=== PATIENT | female | born 1990 | race Caucasian/White ===

== ENCOUNTER 2017-08-12 20:08 | Emergency (ER) | payer OTHER ==
[2017-08-12 20:52] VITALS: BP 118/72
--- NOTE | 2017-08-12 20:58 | UC ---
General HPI - HPI Summary HPI Summary: VET STUDENT. HAS BEEN TREATED FOR MONTH AND A HALF FOR VASCULITIS BY POWER WOOD SAWYER. TODAY DEVELOPED HEADACHE, SINUS PRESSURE. FEVER 101.3F AT 3PM. PETICHEAL RASH TRIPLED IN AREA COVERING ARMS AND LEGS. DEVELOPED ABDOMINAL PAIN , CRAMPING. IS ON MOBIC. CANCELLED COLCHECINE, WAS PUT ON ZPACK AND PREDNISONE TODAY. . - History of Current Complaint Chief Complaint: UCAbdominalPain Stated Complaint: FEVER,ABD & HEAD PAIN Time Seen by Provider: 08/12/17 20:18 Hx Obtained From: Patient Hx Last Menstrual Period: 2 weeks ago Onset/Duration: Sudden Onset, Lasting Hours Onset Severity: Moderate Current Severity: Mild Pain Intensity: 2 Associated Signs & Symptoms: Positive: Abdominal Pain, Fever, Headache, Other - PETECHIA. Negative: Cough, Dizziness, Diarrhea, Dysuria, Syncope, SOB, Trauma, Vomiting - Allergy/Home Medications Allergies/Adverse Reactions: Allergies Allergy/AdvReac Type Severity Reaction Status Date / Time No Known Allergies Allergy Verified 08/12/17 20:28 Home Medications: Home Medications Colchicine* [Colcrys*] 1 tab PO DAILY 08/12/17 [History Confirmed 08/12/17] Meloxicam [Mobic] 1 tab PO DAILY 08/12/17 [History Confirmed 08/12/17] Prednisone 08/12/17 [History] Z Gordon 08/12/17 [History] PMH/Surg Hx/FS Hx/Imm Hx Previously Healthy: Yes - Surgical History Surgical History: None - Family History Known Family History: Negative: Blood Disorder - Social History Occupation: Student Alcohol Use: Weekly Alcohol Amount: 1 drink per week Substance Use Type: None Smoking Status (MU): Never Smoked Tobacco Review of Systems Constitutional: Fever, Fatigue Skin: Rash Eyes: Negative ENT: Sinus Congestion, Sinus Pain/Tenderness Respiratory: Negative Cardiovascular: Negative Gastrointestinal: Abdominal Pain Genitourinary: Negative Motor: Negative Neurovascular: Negative Musculoskeletal: Negative Neurological: Headache Psychological: Negative Is Patient Immunocompromised?: Yes All Other Systems Reviewed And Are Negative: Yes Physical Exam Triage Information Reviewed: Yes Appearance: No Pain Distress, Well-Nourished, Ill-Appearing Vital Signs: Initial Vital Signs Temp 100.4 F 08/12/17 20:17 Pulse 118 08/12/17 20:17 Resp 18 08/12/17 20:17 BP 118/72 08/12/17 20:17 Pulse Ox 100 08/12/17 20:17 Vital Signs Reviewed: Yes Eye Exam: Normal Eyes: Positive: Conjunctiva Clear ENT Exam: Normal ENT: Positive: Normal ENT inspection, Hearing grossly normal, TMs normal Dental Exam: Normal Neck exam: Normal Neck: Positive: Supple, Nontender, No Lymphadenopathy Respiratory Exam: Normal Respiratory: Positive: Chest non-tender, Lungs clear, Normal breath sounds, No respiratory distress Cardiovascular Exam: Normal Cardiovascular: Positive: RRR, No Murmur, Pulses Normal Abdominal Exam: Normal Abdomen Description: Positive: Nontender, No Organomegaly Musculoskeletal Exam: Normal Neurological Exam: Normal Psychological Exam: Normal Skin: Positive: rashes Course/Dx - Course Course Of Treatment: PATIENT ADVISED TO SEEK HIGHER LEVEL OF CARE AT EMERGENCY DEPARTMENT. PATIENT REFUSED THE OFFER OF AMBULANCE TRANSPORT AND ELECTED TO GO TO THE EMERGENCY DEPARTMENT BY PRIVATE CAR. - Differential Dx - Multi-Symptom Differential Diagnoses: Metabolic Abnormality, Sepsis, Other - HSP, TTP, YOMAIRA MTN SPOTTED FEVER, ZOONOTIC DISORDER Provider Diagnoses: PETICHEA; HEADACHE; FEVER; ABDOMINAL PAIN; HISTORY OF VASCULITIS - Physician Notifications Discussed Patient Care With: Jannette Gee Time Discussed With Above Provider: 20:40 Instructed by Provider To: MD Will See In ED Discharge - Discharge Plan Condition: Stable Disposition: OTHER Discharge Disposition Comment: ADVISED TO GO TO ED, REFUSED AMBULANCE Referrals: Florence Vazquez NP [Primary Care Provider] - Additional Instructions: YOU HAVE REFUSED THE OFFER OF AMBULANCE TRANSPORT AND HAVE ELECTED TO GO TO THE EMERGENCY DEPARTMENT BY PRIVATE CAR. YOU ARE ADVISED TO PROCEED SAFELY, BUT DIRECTLY TO THE EMERGENCY DEPARTMENT FOR CONTINUED EVALUATION.
== END 2017-08-12 20:46 | disposition home or self-care (01) ==
LOC: UCEAST 20:08
DX: R50.9 Fever, unspecified (principal); R51 Headache; R10.9 Unspecified abdominal pain; R23.3 Spontaneous ecchymoses
CPT/HCPCS: 99212; G0463

== ENCOUNTER 2017-08-12 21:11 | Emergency (ER) | payer OTHER ==
[2017-08-13] MEDS ORDERED: Acetaminophen TAB* 325 MG PO ONE (01:51)
[2017-08-13] MEDS ORDERED: Ondansetron INJ* 2 MG/ML VIAL IV ONE (01:51)
[2017-08-13] MEDS ORDERED: NS 0.9% 1000 ML* 2,000 ML IV ONE (01:51)
[2017-08-13 02:17] LABS: Hematocrit 34 % (35-47); Hemoglobin 11.2 g/dl (12.0-16.0); Mean Corpuscular HGB Conc 33 g/dl (31-36); Mean Corpuscular Hemoglobin 27 pg (27-31); Mean Corpuscular Volume 83 fL (80-97); Mean Platelet Volume 9 um3 (7.4-10.4); Red Cell Distribution Width 12 % (10.5-15)
[2017-08-13 02:19] LABS: Urine Bacteria 1+ (Absent); Urine Bilirubin Negative (Negative); Urine Glucose Negative (Negative); Urine Nitrite Negative (Negative)
[2017-08-13 02:28] LABS: ALT 11 U/L (7-52); AST 13 U/L (13-39); Albumin 3.5 g/dL (3.2-5.2); Alkaline Phosphatase 61 U/L (34-104); Anion Gap 8 mmol/L (2-11); Blood Urea Nitrogen 8 mg/dL (6-24); C Reactive Protein 96.94 mg/L (< 5.00); CO2 Carbon Dioxide 26 mmol/L (22-32); Calcium 8.8 mg/dL (8.6-10.3); Chloride 98 mmol/L (101-111); EGFR Non-African American 97.9 (>60); Globulin 4.2 g/dL (2-4); Glucose 100 mg/dL (70-100); Potassium 3.4 mmol/L (3.5-5.0); Sodium 132 mmol/L (133-145); Total Protein 7.7 g/dL (6.4-8.9)
[2017-08-13 06:35] VITALS: BP 112/79
--- NOTE | 2017-08-13 07:12 | ED ---
Ailyn Wagner Abhishek, scribed for Joshua Small MD on 08/13/17 at 0151 . Headache - HPI Summary HPI Summary: This patient is a 26 year old F presenting to [facility] with a chief complaint of sinus STOCKTON since Thursday morning. The CC is described as constant. The patient rates the pain 3/10 in severity. Symptoms aggravated by nothing. Symptoms alleviated by nothing. Patient reports fever onset 1400, above 103 and condition is improving, intermittent episodes of abd pain, nausea, petechial rash and diarrhea. Pt states that she has bad sinuses behind my eyes and nose" and that Pt states that her "neck and shoulders have been bad for the past few weeks. " Patient was referred to ED from [facility] care. LMNP was last week. PMHx includes intermittent petechial rash for a month and a half. - History Of Current Complaint Chief Complaint: EDFever Stated Complaint: FEVER/HEADACHE/ABD PAIN Time Seen by Provider: 08/13/17 01:38 Hx Obtained From: Patient Hx Last Menstrual Period: 1 week ago Onset/Duration: Gradual Onset, Started days ago - thursday morning, Still Present Currently Pain Is: Current Pain Scale(0-10)= - 3, Mild Timing: Constant Aggravating Factor: Nothing Allevating Factors: Nothing Associated Signs And Symptoms: Nausea, Fever - onset 1400, above 103 and condition is improving, Other (Noted In Comments) - Diarrhea. intermittent, short episodes of abd pain. Pt also states that she has bad sinuses behind my eyes and nose" and that she has neck and shoulders are bad for a few weeks. - Allergies/Home Medications Allergies/Adverse Reactions: Allergies Allergy/AdvReac Type Severity Reaction Status Date / Time No Known Allergies Allergy Verified 08/12/17 20:28 PMH/Surg Hx/FS Hx/Imm Hx Endocrine/Hematology History: Denies: Hx Diabetes, Hx Thyroid Disease Cardiovascular History: Denies: Hx Hypertension Respiratory History: Denies: Hx Asthma, Hx Chronic Obstructive Pulmonary Disease (COPD) GI History: Denies: Hx Ulcer Infectious Disease History: No Infectious Disease History: Denies: Hx Hepatitis, Hx Human Immunodeficiency Virus (HIV), History Other Infectious Disease, Traveled Outside the [place] in Last 30 Days - Family History Known Family History: Negative: Blood Disorder - Social History Alcohol Use: Weekly Alcohol Amount: 1 drink per week Substance Use Type: Reports: None Smoking Status (MU): Never Smoked Tobacco Review of Systems Positive: Fever - onset 1400, above 103 and condition is improving Eyes: Negative Positive: Other - Pt states that she has bad sinuses behind my eyes and nose" Cardiovascular: Negative Respiratory: Negative Positive: Abdominal Pain - intermittent; short episodes , Diarrhea, Nausea Genitourinary: Negative Positive: Other - Pt states that her neck and shoulders have been bad for the past few weeks. Positive: Rash - petechial rash Neurological: Negative Psychological: Normal All Other Systems Reviewed And Are Negative: Yes Physical Exam - Summary Physical Exam Summary: General: well-appearing, no pain distress, no acute distress Skin: warm, dry, Petechial rash on forearms and legs. Each petechial 1 to 3 mm in size Head: normal Eyes: EOMI, CARLOS ENT: Clear rhinorrhea, Anterior cervical lymphadenopathy Neck: supple, nontender, full range motion Respiratory: CTA, breath sounds present Cardiovascular: RRR Abdomen: soft, nontender Bowel: present Musculoskeletal: normal, strength/ROM intact Neurological: normal, sensory/motor intact, A&O x3 Psychological: affect/mood appropriate Triage Information Reviewed: Yes Vital Signs On Initial Exam: Initial Vitals Temp Pulse Resp BP Pulse Ox 100.7 F 109 18 123/83 100 08/12/17 21:14 08/12/17 21:14 08/12/17 21:14 08/12/17 21:14 08/12/17 21:14 Vital Signs Reviewed: Yes - Paula Coma Scale Coma Scale Total: 15 Diagnostics - Vital Signs Vital Signs Temp Pulse Resp BP Pulse Ox 08/12/17 23:35 100.1 F 112 16 108/77 100 08/12/17 21:14 100.7 F 109 18 123/83 100 - Laboratory Lab Results: Lab Results 08/13/17 08/13/17 08/13/17 Range/Units 02:00 02:00 02:00 WBC 13.0 H (3.5-10.8) 10^3/ul RBC 4.10 (4.0-5.4) 10^6/ul Hgb 11.2 L (12.0-16.0) g/dl Hct 34 L (35-47) % MCV 83 (80-97) fL MCH 27 (27-31) pg MCHC 33 (31-36) g/dl RDW 12 (10.5-15) % Plt Count 310 (150-450) 10^3/ul MPV 9 (7.4-10.4) um3 Neut % (Auto) 81.4 (38-83) % Lymph % (Auto) 9.6 L (25-47) % [place] % (Auto) 8.4 (1-9) % Eos % (Auto) 0.1 (0-6) % Baso % (Auto) 0.5 (0-2) % Absolute Neuts (auto) 10.6 H (1.5-7.7) 10^3/ul Absolute Lymphs (auto) 1.2 (1.0-4.8) 10^3/ul Absolute Monos (auto) 1.1 H (0-0.8) 10^3/ul Absolute Eos (auto) 0 (0-0.6) 10^3/ul Absolute Basos (auto) 0.1 (0-0.2) 10^3/ul Absolute Nucleated RBC 0 10^3/ul Nucleated RBC % 0 INR (Anticoag Therapy) 1.29 H (0.89-1.11) APTT 30.7 (26.0-36.3) seconds Sodium 132 L (133-145) mmol/L Potassium 3.4 L (3.5-5.0) mmol/L Chloride 98 L (101-111) mmol/L Carbon Dioxide 26 (22-32) mmol/L Anion Gap 8 (2-11) mmol/L BUN 8 (6-24) mg/dL Creatinine 0.73 (0.51-0.95) mg/dL Est GFR ( Amer) 126.0 (>60) Est GFR (Non-Af Amer) 97.9 (>60) BUN/Creatinine Ratio 11.0 (8-20) Glucose 100 (70-100) mg/dL Lactic Acid (0.5-2.0) mmol/L Calcium 8.8 (8.6-10.3) mg/dL Total Bilirubin 1.00 (0.2-1.0) mg/dL AST 13 (13-39) U/L ALT 11 (7-52) U/L Alkaline Phosphatase 61 (34-104) U/L C-Reactive Protein 96.94 H (< 5.00) mg/L Total Protein 7.7 (6.4-8.9) g/dL Albumin 3.5 (3.2-5.2) g/dL Globulin 4.2 H (2-4) g/dL Albumin/Globulin Ratio 0.8 L (1-3) Beta HCG, Quant < 0.60 mIU/mL Urine Color Urine Appearance Urine pH (5-9) Ur Specific [place] (1.010-1.030) Urine Protein (Negative) Urine Ketones (Negative) Urine Blood (Negative) Urine Nitrate (Negative) Urine Bilirubin (Negative) Urine Urobilinogen (Negative) Ur Leukocyte Esterase (Negative) Urine WBC (Auto) (Absent) Urine RBC (Auto) (Absent) Ur Squamous Epith Cells (Absent) Urine Bacteria (Absent) Urine Glucose (Negative) 08/13/17 08/13/17 Range/Units 02:00 02:00 WBC (3.5-10.8) 10^3/ul RBC (4.0-5.4) 10^6/ul Hgb (12.0-16.0) g/dl Hct (35-47) % MCV (80-97) fL MCH (27-31) pg MCHC (31-36) g/dl RDW (10.5-15) % Plt Count (150-450) 10^3/ul MPV (7.4-10.4) um3 Neut % (Auto) (38-83) % Lymph % (Auto) (25-47) % [place] % (Auto) (1-9) % Eos % (Auto) (0-6) % Baso % (Auto) (0-2) % Absolute Neuts (auto) (1.5-7.7) 10^3/ul Absolute Lymphs (auto) (1.0-4.8) 10^3/ul Absolute Monos (auto) (0-0.8) 10^3/ul Absolute Eos (auto) (0-0.6) 10^3/ul Absolute Basos (auto) (0-0.2) 10^3/ul Absolute Nucleated RBC 10^3/ul Nucleated RBC % INR (Anticoag Therapy) (0.89-1.11) APTT (26.0-36.3) seconds Sodium (133-145) mmol/L Potassium (3.5-5.0) mmol/L Chloride (101-111) mmol/L Carbon Dioxide (22-32) mmol/L Anion Gap (2-11) mmol/L BUN (6-24) mg/dL Creatinine (0.51-0.95) mg/dL Est GFR ( Amer) (>60) Est GFR (Non-Af Amer) (>60) BUN/Creatinine Ratio (8-20) Glucose (70-100) mg/dL Lactic Acid 0.6 (0.5-2.0) mmol/L Calcium (8.6-10.3) mg/dL Total Bilirubin (0.2-1.0) mg/dL AST (13-39) U/L ALT (7-52) U/L Alkaline Phosphatase (34-104) U/L C-Reactive Protein (< 5.00) mg/L Total Protein (6.4-8.9) g/dL Albumin (3.2-5.2) g/dL Globulin (2-4) g/dL Albumin/Globulin Ratio (1-3) Beta HCG, Quant mIU/mL Urine Color Yellow Urine Appearance Clear Urine pH 6.0 (5-9) Ur Specific [place] 1.019 (1.010-1.030) Urine Protein 2+(100 mg/dl) H (Negative) Urine Ketones 2+ H (Negative) Urine Blood 3+ H (Negative) Urine Nitrate Negative (Negative) Urine Bilirubin Negative (Negative) Urine Urobilinogen Negative (Negative) Ur Leukocyte Esterase Negative (Negative) Urine WBC (Auto) Trace(0-5/hpf) (Absent) Urine RBC (Auto) 1+(3-5/hpf) H (Absent) Ur Squamous Epith Cells Present H (Absent) Urine Bacteria 1+ H (Absent) Urine Glucose Negative (Negative) Result Diagrams: 08/13/17 02:00 08/13/17 02:00 Lab Statement: Any lab studies that have been ordered have been reviewed, and results considered in the medical decision making process. Headache Course/Dx - Course Course Of Treatment: This patient is a 26 year old F presenting to [facility] c/o [facility] sinus STOCKTON since Thursday morning. The patient rates the pain 3/10 in severity. Patient reports fever onset 1400, above 103 and condition is improving , intermittent episodes of abd pain, nausea, petechial rash and diarrhea. Pt states that she has bad sinuses behind my eyes and nose" and that Pt states that her "neck and shoulders have been bad for the past few weeks. " Patient was [facility] to ED from [facility]. LMNP was last week. PMHx includes intermittent petechial rash for a month and a half. WBCof 13.0 HH. In the ED course, pt received Tylenol, Zofran and fluids. Medication reviewed. Elevated BP noted. PATIENT IS SEEING DR HANEY FOR DIFFUSE PETECHIAL RASH. THIS RASH HAS SPREAD MORE EXTENSIVELY ON ARMS SINCE THE FEVER. THE STOCKTON IS FRONTAL, THE PATIENT BELIEVES IT IS SINUS PRESSURE. SHE APPEARS WELL. SHE HAS HAD SOME NECK DISCOMFORT FOR A WEEK OR MORE, THIS IS NOT WORSE WITH THE FEVER AND HER NECK IS NOT STIFF AND HAS FROM. PATIENT WAS UNSURE IF SHE COULD TAKE ACETAMINOPHEN WITH HER PRESENT MEDICATIONS. IMPROVED IN ED AFTER IVF, ZOFRAN AND ACETAMINOPHEN. LABS WERE DISCUSSED WITH PATIENT. NO CLINICAL SIGNS OF MENINGITIS. SHE IS ON AZITHROMYCIN, STARTED 08/12/[address] HANEY. SHE WILL F/ U WITH DR HANEY TODAY; RETURN TO ED IF WORSE. - Diagnoses Provider Diagnoses: Fever, Sinusitis, Petechiae Discharge - Discharge Plan Condition: Stable Disposition: HOME Patient Education Materials: Sinusitis (ED), Fever in Adults (ED) Referrals: Florence Vazquez NP [Primary Care Provider] - Jorge Haney MD [Medical Doctor] - Additional Instructions: FOLLOW UP WITH YOUR DOCTOR. CALL DR HANEY TODAY. CONTINUE THE AZITHROMYCIN HE PRESCRIBED. RETURN TO THE EMERGENCY DEPARTMENT FOR ANY WORSENING OF YOUR CONDITION; PAIN, STIFF NECK, YOU FEEL ILL, SPREAD OF RASH, UNEXPLAINED BLEEDING OR QUESTIONS OR CONCERNS. The documentation as recorded by the Ailyn portillo Abhishek accurately reflects the service I personally performed and the decisions made by me, Joshua Small MD.
== END 2017-08-13 06:34 | disposition home or self-care (01) ==
LOC: ED 21:11
DX: R50.9 Fever, unspecified (principal); J32.9 Chronic sinusitis, unspecified; R23.3 Spontaneous ecchymoses; R11.0 Nausea; R19.7 Diarrhea, unspecified; R10.9 Unspecified abdominal pain; Z32.02 Encounter for pregnancy test, result negative
CPT/HCPCS: 36415; 80053; 81003; 81015; 83605; 84702; 85025; 85610; 85730; 86140; 87040; 87086; 96361; 96374; 99284; A9270-GY; J2405

== ENCOUNTER 2018-02-06 10:52 | Emergency (ER) | payer OTHER ==
[2018-02-06 11:23] VITALS: BP 117/75
--- NOTE | 2018-02-06 11:35 | UC ---
Throat Pain/Nasal Boris HPI - HPI Summary HPI Summary: Patient to urgent care today with 3 weeks of worsening sinus congestion and pain. Patient has been using that department frequently. - History of Current Complaint Chief Complaint: UCRespiratory Stated Complaint: RESP COMPLAINT Time Seen by Provider: 02/06/18 11:29 Hx Obtained From: Patient Hx Last Menstrual Period: 1 week ago ?: No Onset/Duration: Gradual Onset, Lasting Weeks - 3, Still Present Severity: Moderate Cough: None Associated Signs & Symptoms: Positive: Sinus Discomfort, Nasal Discharge - Allergies/Home Medications Allergies/Adverse Reactions: Allergies Allergy/AdvReac Type Severity Reaction Status Date / Time No Known Allergies Allergy Verified 02/06/18 11:23 Home Medications: Home Medications Secukinumab [Cosentyx Pen] 150 mg SQ MONTHLY 02/06/18 [History Confirmed ] PMH/Surg Hx/FS Hx/Imm Hx Previously Healthy: No - psoriasis - Surgical History Surgical History: None - Family History Known Family History: Negative: Blood Disorder - Social History Occupation: Employed Full-time Lives: With Family Alcohol Use: Occasionally Alcohol Amount: 1 drink per week Substance Use Type: None Smoking Status (MU): Never Smoked Tobacco Review of Systems Constitutional: Negative Skin: Negative Eyes: Negative ENT: Sore Throat, Nasal Discharge, Sinus Congestion, Sinus Pain/Tenderness Respiratory: Negative Cardiovascular: Negative Gastrointestinal: Negative Genitourinary: Negative Motor: Negative Neurovascular: Negative Musculoskeletal: Negative Neurological: Headache Psychological: Negative Is Patient Immunocompromised?: No All Other Systems Reviewed And Are Negative: Yes Physical Exam Triage Information Reviewed: Yes Appearance: Well-Appearing, No Pain Distress, Well-Nourished Vital Signs: Initial Vital Signs Temp 98.4 F 02/06/18 11:20 Pulse 78 02/06/18 11:20 Resp 18 02/06/18 11:20 BP 117/75 02/06/18 11:20 Pulse Ox 100 02/06/18 11:20 Vital Signs Reviewed: Yes Eye Exam: Normal Eyes: Positive: Conjunctiva Clear ENT Exam: Normal ENT: Positive: Normal ENT inspection, Hearing grossly normal, Pharynx normal, Nasal congestion, Nasal drainage, TMs normal, Sinus tenderness, Uvula midline, Other - Thick mucus draining down the back of the patient's throat. Negative: Tonsillar swelling, Tonsillar exudate, Trismus, Muffled voice, Hoarse voice Dental Exam: Normal Neck exam: Normal Neck: Positive: Supple, Nontender Respiratory Exam: Normal Respiratory: Positive: Chest non-tender, Lungs clear, Normal breath sounds, No respiratory distress, No accessory muscle use Cardiovascular Exam: Normal Cardiovascular: Positive: RRR, No Murmur, Pulses Normal, Brisk Capillary Refill Musculoskeletal Exam: Normal Musculoskeletal: Positive: Strength Intact, ROM Intact, No Edema Neurological Exam: Normal Neurological: Positive: Alert, Muscle Tone Normal Psychological Exam: Normal Skin Exam: Normal Throat Pain/Nasal Course/Dx - Course Assessment/Plan: Augmentin, Flonase, Mucinex D, and Diflucan if needed. Increase fluids follow with primary care when necessary - Differential Dx/Diagnosis Provider Diagnoses: Acute rhinosinusitis Discharge - Sign-Out/Discharge Documenting (check all that apply): Discharge - Discharge Plan Condition: Stable Disposition: HOME Prescriptions: Amoxicillin/Clavulanate TAB* [Augmentin TAB 875*] 875 mg PO BID #20 tab Fluconazole 150 MG (NF) [Diflucan 150 mg (NF)] 150 mg PO ONCE #2 tab Fluticasone NASAL SPRAY 50MCG* [Flonase NASAL SPRAY 50MCG*] 2 spray BOTH NARES DAILY #1 btl Patient Education Materials: Rhinosinusitis (ED), How to Use Nasal Prosser (ED) Referrals: [facility] [place] [facility]FERR[facility] [Outside] - If Needed - Billing Disposition and Condition Condition: STABLE Disposition: HOME
== END 2018-02-06 11:40 | disposition home or self-care (01) ==
LOC: UCEAST 10:52
DX: J01.90 Acute sinusitis, unspecified (principal); L40.9 Psoriasis, unspecified
CPT/HCPCS: 99212; G0463

== ENCOUNTER 2018-03-03 20:24 | Emergency (ER) | payer OTHER ==
[2018-03-03 20:37] VITALS: BP 130/94
--- NOTE | 2018-03-03 20:54 | UC ---
Throat Pain/Nasal Boris HPI - HPI Summary HPI Summary: Pt presents with sinus pain/pressure/congestion, dry and intermittently bloody nose. She was seen about a month ago for sinus symptoms and placed on Augmentin and Flonase. She had mild relief from this therapy, but her symptoms have returned. She is still using the Flonase daily and notes that now she has noticed some bloody post nasal drip and her nose feels "raw". Denies fever, chills, cough, SOB, chest pain. - History of Current Complaint Chief Complaint: UCRespiratory Stated Complaint: SINUS PAIN Time Seen by Provider: 03/03/18 20:54 Hx Obtained From: Patient Hx Last Menstrual Period: IUD Onset/Duration: Gradual Onset Severity: Mild Pain Intensity: 2 Pain Scale Used: 0-10 Numeric - Allergies/Home Medications Allergies/Adverse Reactions: Allergies Allergy/AdvReac Type Severity Reaction Status Date / Time No Known Allergies Allergy Verified 03/03/18 20:37 PMH/Surg Hx/FS Hx/Imm Hx - Additional Past Medical History Additional PMH: psoriatic arthritis - Surgical History Surgical History: None - Family History Known Family History: Positive: None Negative: Blood Disorder - Social History Occupation: Student Lives: With Family Alcohol Use: Occasionally Alcohol Amount: 1 drink per week Substance Use Type: None Smoking Status (MU): Never Smoked Tobacco Review of Systems Constitutional: Negative Skin: Negative Eyes: Negative ENT: Epistaxis, Nasal Discharge, Sinus Congestion, Sinus Pain/Tenderness Respiratory: Negative Cardiovascular: Negative Gastrointestinal: Negative Neurovascular: Negative Neurological: Negative Psychological: Negative All Other Systems Reviewed And Are Negative: Yes Physical Exam - Summary Physical Exam Summary: GENERAL: NAD. WDWN HEENT: NC/AT. Conjunctiva clear without inflammation or discharge. TMs intact , no bulging, erythema, or edema. Nasal mucosa moderately swollen and erythematous with yellow discharge. TTP maxillary and frontal sinus. Posterior oropharynx without exudates, erythema, or tonsillar enlargement. Uvula midline. NECK: Supple without lymphadenopathy CHEST: CTAB. No r/r/w. No accessory muscle use. Breathing comfortably and in no distress. CV: RRR. Without m/r/g. Pulses intact. SKIN: No rashes, sores, lesions, or open wounds. NEURO: Alert. CN II-XII grossly intact. PSYCH: Age appropriate behavior. Triage Information Reviewed: Yes Vital Signs: Initial Vital Signs Temp 98.1 F 03/03/18 20:33 Pulse 82 03/03/18 20:33 Resp 12 03/03/18 20:33 BP 130/94 03/03/18 20:33 Pulse Ox 100 03/03/18 20:33 Throat Pain/Nasal Course/Dx - Course Course Of Treatment: Sinusitis - Doxycycline and continue using flonase - Differential Dx/Diagnosis Provider Diagnoses: Sinusitis Discharge - Sign-Out/Discharge Documenting (check all that apply): Discharge/Admit/Transfer - Discharge Plan Condition: Stable Disposition: HOME Prescriptions: DOXYcycline CAP(*) [DOXYcycline 100MG CAP(*)] 100 mg PO BID #14 cap Oxymetazoline 0.05% NASAL SPR* [Afrin 0.05% NASAL SPRAY*] 1 spray NASAL Q12H #1 btl Patient Education Materials: Sinusitis (ED) Referrals: [facility] [place] [Primary Care Provider] - Additional Instructions: If you develop a fever, shortness of breath, chest pain, new or worsening symptoms - please call your PCP or go to the ED. Your blood pressure was high at todays visit. Please see your primary provider within 4 weeks for recheck and re-evaluation. - Billing Disposition and Condition Condition: STABLE Disposition: HOME
== END 2018-03-03 21:12 | disposition home or self-care (01) ==
LOC: UCEAST 20:24
DX: J32.9 Chronic sinusitis, unspecified (principal); L40.50 Arthropathic psoriasis, unspecified
CPT/HCPCS: 99212; G0463